=== PATIENT | male | born 1965 | race Caucasian/White ===

== ENCOUNTER 2017-05-18 20:13 | Inpatient (IN) | payer BC ==
--- NOTE | ~2017-05-18 | DS ---
Discharge Summary [facility] [address] [place]. [address] NAME: KACEY VANN : 69 STATUS : ADM Abran PAT#: [id number] AGE: 51 ADM/REG DATE : 05/18/17 MR#: [id number] REPORT SERV DATE: 05/20/17 DICTATED BY: KEVON MOSER DATE: 05/20/17 REPORT STATUS : Draft TRANSCRIBED BY: MODL DATE: 05/20/17 ADMISSION DATE: 05/18/2017 DISCHARGE DATE: 05/20/2017 FINAL DIAGNOSES: 1. Syncopal to near syncopal episode, possibly vasovagal. 2. Leukocytosis, resolved. 3. Hypokalemia resolved. 4. Atrial fibrillation, resolved. CONSULTATIONS: Neurology. PROCEDURES: 1. CT scan of the brain done on the showing unremarkable noncontrast CT head, no acute intracranial pathology. 2. CTA of the chest done on the showing no CTA evidence of pulmonary embolus, cardiomegaly, no acute CHF pattern, probable ill-defined dependent bibasilar atelectasis, nonobstructing right nephrolithiasis. 3. MRI/MRA of the brain done on the showing no acute intracranial abnormality. Unremarkable MRA of the brain. 4. Chest x-ray, mild bibasilar atelectasis. Otherwise, no acute cardiopulmonary abnormality. 5. Echocardiogram showing an EF of 55%. HPI: For current physical findings and HPI, please see dictated H and P by Dr. Covarrubias. In brief, the patient is a 51-year-old male who presented with complaints of feeling dizzy as if he was going to pass out. He laid down on the bed, was not sure that he completely passed out but was confused, dazed, presented to the emergency department. He was noted to be initially hypotensive with BPs 107/48 and 88/49. He was afebrile, pulse rate was in the 60s to 80s. Initial imaging studies were as noted above. Initial procalcitonin was 0.14, he had a subsequent rise to 3.16. Initial potassium was 3.4, this easily corrected. Initial creatinine was 1.17, subsequent was 0.96 and 0.89. Initial glucose was 130, subsequent was 119 and 110. Magnesium was normal, PO4 was normal, folate slightly low at 2.6, troponin was 0.03, TSH was 0.597, C-reactive protein was 14.7, ammonia was 13. Lactate initially was 3, subsequent was 1.8. Initial white count was 21,000, subsequent was 17.9 and then 8.8. D-dimer was 0.29. Strep was negative. Rickettsial panel is currently pending. Legionella was negative. Urinalysis was negative. Blood cultures to this date are negative. Sputum is negative to date. HOSPITAL COURSE: The patient was admitted. He was started on antibiotics because of the significant leukocytosis, specifically cefepime and vancomycin. Neurology was consulted. Cultures were drawn. IV fluids were given. Electrolyte protocol was initiated. I saw the patient the following day. He has had no more symptoms, was afebrile, his white count was decreasing. Sedimentation rate was ordered which was negative as was the rickettsial panel which is pending. Orthostatic vitals were negative. Neurology saw him in consultation. Additional lab outside of the folate was normal. MRI was ordered and reviewed. He was seen Discharge [address] [address] NAME: KACEY VANN : 69 STATUS : ADM Abran PAT#: [id number] AGE: 51 ADM/REG DATE : 05/18/17 MR#: [id number] REPORT SERV DATE: 05/20/17 DICTATED BY: KEVON MOSER DATE: 05/20/17 REPORT STATUS : Draft TRANSCRIBED BY: NOEMI DATE: 05/20/17 the following day, he was still having no difficulties although his subsequent procalcitonin was higher at 3.12. An EEG was ordered and then changed to outpatient. The patient's telemetry showed no further dysrhythmias. The patient requested to go home the evening of the . A long discussion with the patient in the presence of his mother, family and nursing staff, discussed with Mr. Vann that he did have the one episode of atrial fib, although he has had no further, his CHADS score would be very low, he has no other risk factors. We did discuss the need for followup on the atrial fib as it is uncertain at this time, probably did not have a relation to syncope but will still need to be followed up on. We discussed the risks of undiagnosed intermittent atrial fibrillation including stroke risk and he voiced understanding. We talked about his elevated procalcitonin and leukocytosis on presentation and his pending lab. Recommended repeat procalcitonin in the morning. The patient preferred to follow up with his regular doctor to finalize his cultures, his rickettsial panel and further treatment. He was agreeable to scheduling the EEG outpatient also. He was cautioned about driving since he has not had his EEG although seizure seems remote. He was informed that there would be a driving restriction should he be diagnosed to have a seizure propensity and he voiced understanding. At this point, after all that discussion the patient still wishes to go, does not wish to stay for a.m. lab, cardiology consult and further evaluation. Again he was well aware of the risks and benefits and still requested to go this evening. He was discharged with a prescription for Ceftin 500 b.i.d. He was not taking any home medications, so none to be continued. He can also follow up on his slightly low folate level outpatient. DICTATED BY: Henry Ko/NOEMI Kevon Moser M.D. / [id number]
--- NOTE | ~2017-05-18 | CN ---
Consultation Report [facility] [address] [place]. [address] NAME: KACEY ZHANG : 69 STATUS : ADM Abran PAT#: [id number] AGE: 51 ADM/REG DATE : 05/18/17 MR#: [id number] REPORT SERV DATE: 05/19/17 DICTATED BY: DATE: REPORT STATUS : Draft TRANSCRIBED BY: MODL DATE: 05/19/17 NEUROLOGY CONSULTATION DATE OF CONSULTATION: 05/19/2017 CLINICAL INDICATION: Loss of consciousness episode. HISTORY OF PRESENT ILLNESS: This is a 51-year-old male, presented to [facility] on 05/18/2017 secondary to loss consciousness episode event. The patient was visiting on the toilet talking on the phone, when patient stood up, the patient was noted to have dizzy sensation composed of both feel like about to pass out as well as vertigo type of sensation. The patient somehow was able to manage walking to the bedroom, was noted to be in and out of consciousness with difficulties telling how long the symptom has lasted. The patient reports post-event weakness as well as some mild confusion. The patient thought he had dialled 911, but apparently called his mother for four times. The patient denies similar events in the past. Reports improving symptoms still with some weakness, but have no problem walking. The patient denies recurrent gait abnormality. Denies any vertigo or loss of consciousness or presyncopal sensation. The patient denies any previous history of seizure and denies any previous history of head trauma. The patient denies previous seizure medication usage and denies any prior loss of consciousness event. No history of meningitis was otherwise reported by the patient. The patient denies any current focal deficits and denies recent illness, fever, chills, nausea, vomiting, chest pain, or shortness of breath. Denies any family history of seizure or seizure-like activities. Denies new medications prior to hospitalization. At the time of evaluation, the patient denies any past medical history. Reports blood pressure usually around 110 to 120s at home unless doing strenuous activities. FAMILY HISTORY: The patient's family history is significant for hypertension. No family history of seizure was otherwise reported. SOCIAL HISTORY: Denies tobacco, alcohol, or recreational drug usage. MEDICATIONS: The patient was noted to have no home medications and reports allergy to hydrocodone. The patient does have a history of a back surgery as well as kidney stones in the past. REVIEW OF SYSTEMS: Negative except for those mentioned in the HPI. PHYSICAL EXAMINATION: VITAL SIGNS: Overnight, the patient was noted to have vital signs with T-max of 98.5, heart rate of 57 to 64, respirations of 15, and blood pressure of 88 to 131 over 49 to 53. GENERAL: The patient is a well developed, well nourished, in no acute distress. CARDIOVASCULAR: Regular rate and rhythm. No carotid bruits were otherwise auscultated. Consultation Report [place] [address] [facility] [place]. [address] NAME: KACEY ZHANG : 69 STATUS : ADM Abran PAT#: [id number] AGE: 51 ADM/REG DATE : 05/18/17 MR#: [id number] REPORT SERV DATE: 05/19/17 DICTATED BY: DATE: REPORT STATUS : Draft TRANSCRIBED BY: MODL DATE: 05/19/17 PULMONARY: Clear to auscultation bilaterally. NEUROLOGIC: Generally, the patient is alert and oriented x3 to person, place, year, and month. Follows simple and 2-step commands. No dysarthria. No aphasia. Intact registration and recall. Cranial nerves II through XII, pupils equal, round, and reactive to light. Extraocular eye movement was noted to be intact. Intact peripheral vision. Symmetrical facial expression and sensation. Midline tongue. Normal palatal movement. Mild decreased hearing in bilateral ears. The patient demonstrated 5/5 bilateral upper and lower extremity strength. Normal muscle, bulk, and tone. 5/5 bilateral lower extremity strength at the time of evaluation with normal muscle, bulk, and tone. No pronator drift was otherwise noted. Reports symmetrical sensation bilaterally. Normal [id number]-hp-[id number] examination without ataxia. At the time of evaluation, deep tendon reflex was 1+ throughout. Downgoing toe on the right plantar reflex. Upgoing toe on the left plantar reflex. At the time of evaluation, normal station and normal gait. LABORATORY STUDIES: Demonstrated white blood cell count of 17.9, hemoglobin of 13.2, hematocrit of 38.1, and platelet count of 235. Chemistry panel: Sodium of 138, potassium 4.2, chloride 108, bicarb 24, BUN of 9, creatinine of 0.96, glucose of 119, calcium of 8.1, magnesium 1.9. Urinalysis demonstrated negative leukocyte esterase and negative nitrite. At the time of evaluation, the patient's MRI of the brain was reviewed which demonstrated no acute process. MRA of the head was also reviewed which demonstrated no acute stenosis or atherosclerotic disease. CT scan of the brain otherwise demonstrated no acute process. Echocardiogram is pending. IMPRESSION: Loss of consciousness with etiology unclear. MRI of the brain is otherwise normal without any acute events. The patient reports improving generalized weakness. Overnight, since the hospital admission, the patient was noted to have some hypotension with orthostatic vital signs are negative at this time, concern for possible loss of consciousness secondary to hypotension versus seizure. We will check procalcitonin level, sedimentation rate, CRP, vitamin B12, folate, TSH, free T4. We will also obtain echocardiogram for evaluation. RECOMMENDATION: 1. Procalcitonin, sedimentation rate, CRP, vitamin B12, folate, TSH, and free T4 with morning labs. 2. Echo pending. [facility]/NOEMI Junior Knowles MD Consultation Report [address] [address] NAME: KACEY ZHANG : 69 STATUS : ADM Abran PAT#: [id number] AGE: 51 ADM/REG DATE : 05/18/17 MR#: [id number] REPORT SERV DATE: 05/19/17 DICTATED BY: DATE: REPORT STATUS : Draft TRANSCRIBED BY: MODL DATE: 05/19/17 / [id number] CC: Henry Ko OLIVER M
--- NOTE | ~2017-05-18 | HP ---
History And Physical [facility] [address] [facility] [place]. [address] NAME: KACEY VANN : 69 STATUS : ADM Abran PAT#: [id number] AGE: 51 ADM/REG DATE : 05/18/17 MR#: [id number] REPORT SERV DATE: 05/19/17 DICTATED BY: KRANTHI BAUGH DATE: 05/19/17 REPORT STATUS : Draft TRANSCRIBED BY: MODMiguel Angel DATE: 05/19/17 DATE OF ADMISSION: 05/18/2017 CHIEF COMPLAINT: Passed out today. HISTORY OF PRESENT ILLNESS: This is a 51-year-old male with no significant past medical history, who presents to the emergency room at [facility], with the above-mentioned complaint. History is obtained from the patient and reviewing data available on the [employer] system. According to Mr. Vann, he was in his usual state of health until this afternoon when he was at home sitting on the toilet when he felt very dizzy and was going to pass out. He somehow made it to his bed and lay down on the bed and felt himself passing out again. He really does not know whether he fully passed out, but when he subsequently recovered, he was trying to call 911, but somehow was dialing his mother's number repeatedly. His mother came over because she knew something was wrong, and found him weak and confused, and called 911. The patient was subsequently brought here. In the emergency room, initial workup revealed he had leukocytosis with hypokalemia. He presented with hypotension as well. Hospitalist Service is asked to admit him for observation for his syncope and evaluation of his other abnormalities. At the time of my evaluation, he denied any chest pain or palpitations. He had no orthopnea. He did not have any cough, hemoptysis, night sweats, or weight loss. He denied any nausea, vomiting, or diarrhea. He did have some chills later in the evening and when he got here. No history of hematemesis, hematochezia, or hematuria. No other history of recent contacts, travel, or exposures. PAST MEDICAL HISTORY: None. SOCIAL HISTORY: He does not smoke, drink, or use recreational drugs. FAMILY HISTORY: Noncontributory. MEDICATIONS: His medications at home were reviewed by me in the chart today and reordered by me. REVIEW OF SYSTEMS: As in history of present illness. All other systems reviewed in detail and are quite unremarkable. PHYSICAL EXAMINATION: GENERAL: This is a pleasant 51-year-old male not in any acute distress. HEENT: His head is atraumatic, normocephalic. He is alert, awake, oriented to time, place, and person. Pupils are equal, reacting to light, and accommodating. External ocular muscles are intact. Membranes are moist and pink. Sclerae are nonicteric. History And Physical [address] [address] NAME: KACEY VANN : 69 STATUS : ADM Abran PAT#: [id number] AGE: 51 ADM/REG DATE : 05/18/17 MR#: [id number] REPORT SERV DATE: 05/19/17 DICTATED BY: KRANTHI BAUGH DATE: 05/19/17 REPORT STATUS : Draft TRANSCRIBED BY: NOEMI DATE: 05/19/17 NECK: Supple with no jugular venous distention, lymphadenopathy, or thyromegaly. LUNGS: Clear to auscultation with no wheezes, rubs, or crackles. HEART: Heart sounds were regular with no murmurs, rubs, or gallops. ABDOMEN: Soft, nontender. Bowel sounds are present. EXTREMITIES: Showed no cyanosis, clubbing, or edema. NEUROLOGIC: Grossly intact. No focal sensory or motor deficits. Higher functions appeared intact. Gait was not examined at this time. VITAL SIGNS: His vital signs today showed a temperature of 97.8, pulse 64, respirations 18 to 20 a minute, blood pressure was 107/48, oxygen saturation upon arrival was 97% breathing 2 L of oxygen via nasal cannula. LABORATORY DATA: Reviewed on the [employer] system showed a CMP with a sodium of 141, potassium 3.4 chloride 103, and CO2 was 28. BUN was 10 with a creatinine of 1.17. Blood glucose was 130. Magnesium was 1.9 and calcium was 8.5. Troponin was 0.03 and initial lactate was 3.0 today. CBC revealed a white blood cell count of 21,000. Hemoglobin, hematocrit, and platelet count were within normal limits. His prothrombin time was 14.6 with an INR 1.2. Urinalysis was grossly unremarkable today. Films of the CT scan of his brain, CTA of the chest, and chest x-ray were reviewed by me on the PACS today. There were no acute pulmonary infiltrates or lobar consolidations seen in the chest x-ray. CT of the chest did not reveal any acute pulmonary embolism. CT of the brain did not reveal any acute intracranial pathology. Please see report for details. IMPRESSION: 1. Syncope. 2. Sepsis. 3. Leukocytosis. 4. Hypokalemia. 5. Hypotension. 6. History of recurrent priapism in the past. PLAN: We will admit Mr. Vann to the Hospitalist Service with telemetry for a 24-hour observation period. CT of the head and CT of the chest did not reveal any acute abnormalities to explain his syncopal episode. The differential would certainly include a TIA versus CVA. We will go ahead and get an MRI of the brain along with an MRA and an echocardiogram. Meanwhile, we will obtain cultures and start him on empiric IV antibiotics. Check his procalcitonin level as well. We will replace potassium. Check chemistry and CBC in the morning along with a peripheral smear as well. We will start him on IV fluids for his hypotension, which he has responded well, and we will continue this. We will also place him on bronchodilator treatments, and continue supplemental oxygen therapy. He will certainly benefit from a Neurology evaluation in the morning after the tests, which we have ordered have been performed. At this time, we will go ahead and place him on low-molecular weight heparin for DVT prophylaxis while here. We will certainly be repeating his lactate levels and chemistry and CBC. I have discussed the above plans with the patient. His questions were answered, and he and his family are agreeable to the above recommendations. Hospitalist Service will be following him during his stay here. History And Physical [address] [address] NAME: KACEY VANN : 69 STATUS : ADM Abran PAT#: [id number] AGE: 51 ADM/REG DATE : 05/18/17 MR#: [id number] REPORT SERV DATE: 05/19/17 DICTATED BY: KRANTHI BAUGH DATE: 05/19/17 REPORT STATUS : Draft TRANSCRIBED BY: NOEMI DATE: 05/19/17 MR/NOEMI Kranthi Baugh M.D. / [id number] CC: Miles Scherer M.D.
[2017-05-18 20:08] LABS: BASOPHILS 0 %; BASOPHILS ABSOLUTE 0.01 10/3/uL (0.0-0.16); EOSINOPHILS 0.2 %; EOSINOPHILS ABSOLUTE 0.05 10/3/uL (0.0-0.53); ER CBC TAT 0 Hrs 10 Mins; HEMATOCRIT 42.7 % (40.0-51.0); HEMOGLOBIN 14.5 g/dL (13.6-17.8); IMMATURE GRANULOCYTES 0.3 %; IMMATURE GRANULOCYTES ABSOLUTE 0.06 10/3/uL (0.0-0.11); LYMPHOCYTES ABSOLUTE 1.47 10/3/uL (0.67-4.30); MANUAL DIFF NO %; MEAN CORPUSCULAR HEMOGLOB 29.8 pg (26.0-34.0); MEAN CORPUSCULAR VOLUME 87.9 fL (80-100); MEAN PLATELET VOLUME 10.6 fL (9.2-13.0); MONOCYTES 1.4 %; MONOCYTES ABSOLUTE 0.29 10/3/uL (0.21-1.20); NEUTROPHILS 91.1 %; NEUTROPHILS ABSOLUTE 19.14 10/3/uL (2.02-8.40); PLATELET COUNT 235 10/3/uL (150-400); RBC DISTRIBUTION WIDTH 13.1 % (12.0-16.0); RED CELL COUNT 4.86 10/6/uL (4.7-6.1)
[2017-05-18 20:14] LABS: ASCORBIC ACID (UR NOT ORDER) NEG (NEG); BILIRUBIN, URINE NEGATIVE (NEG); ER URINALYSIS TAT 0 Hrs 16 Mins; KETONE, URINE 20 MG/DL (NEG); LEUKOCYTE ESTERASE(NOT OR NEG (NEG); NITRITE (URINE) NEG (NEG); WBC (NOT ORDERED) (RFLEX) 1 (0-5)
[2017-05-18 20:19] LABS: PARTIAL THROMBO TIME 29.6 SEC (22.5-37.2)
[2017-05-18 20:20] LABS: INTERNATIONAL NORMAL RATI 1.2 UNITS (-); PROTIME (NOT ORD) 14.6 SEC (12.0-14.5)
[2017-05-18 20:21] LABS: BUN (BLOOD UREA NITROGEN) 10 MG/DL (6-23); CALCIUM, SERUM 8.5 MG/DL (8.5-10.4); CHEST PAIN PROFILE TAT 0 Hrs 23 Mins; CHLORIDE, SERUM 103 MMOL/L (96-112); CO2 (CARBON DIOXIDE) 28 MMOL/L (24-34); CREATININE 1.17 MG/DL (0.70-1.30); GFR AFRICAN AMERICAN 84 ML/MIN (>=60); GFR NON AFRICAN AMERICAN 73 ML/MIN (>=60); GLUCOSE, SERUM 130 MG/DL (60-99); POTASSIUM, SERUM 3.4 MMOL/L (3.5-5.3); SODIUM, SERUM 141 MMOL/L (135-148); TROPONIN I 0.03 NG/ML (<0.05)
[2017-05-18 20:22] LABS: D-DIMER QUANTITATIVE 0.29 ug/mLFEU (< 0.50)
[2017-05-18] MEDS ORDERED: *DENIES (22:13)
[2017-05-19 00:51] LABS: PROCALCITONIN 0.14 ng/mL (<0.5)
[2017-05-19 04:08] LABS: BASOPHILS 0 %; EOSINOPHILS 0.4 %; EOSINOPHILS ABSOLUTE 0.07 10/3/uL (0.0-0.53); HEMOGLOBIN 13.2 g/dL (13.6-17.8); IMMATURE GRANULOCYTES 0.3 %; IMMATURE GRANULOCYTES ABSOLUTE 0.05 10/3/uL (0.0-0.11); LYMPHOCYTES 9.6 %; LYMPHOCYTES ABSOLUTE 1.72 10/3/uL (0.67-4.30); MEAN CORPUS HGB CONC 34.6 g/dL (32.0-36.0); MEAN CORPUSCULAR HEMOGLOB 29.9 pg (26.0-34.0); MEAN CORPUSCULAR VOLUME 86.2 fL (80-100); MEAN PLATELET VOLUME 10.1 fL (9.2-13.0); MONOCYTES 3.8 %; MONOCYTES ABSOLUTE 0.68 10/3/uL (0.21-1.20); NEUTROPHILS 85.9 %; NEUTROPHILS ABSOLUTE 15.33 10/3/uL (2.02-8.40); PLATELET COUNT 235 10/3/uL (150-400); RED CELL COUNT 4.42 10/6/uL (4.7-6.1); WHITE BLOOD CELLS 17.9 10/3/uL (4.5-10.5)
[2017-05-19 04:15] LABS: HEMATOCRIT 38.1 % (40.0-51.0); MANUAL DIFF NO %
[2017-05-19 04:25] LABS: BUN (BLOOD UREA NITROGEN) 9 MG/DL (6-23); CALCIUM, SERUM 8.1 MG/DL (8.5-10.4); CHLORIDE, SERUM 108 MMOL/L (96-112); CO2 (CARBON DIOXIDE) 24 MMOL/L (24-34); CREATININE 0.96 MG/DL (0.70-1.30); GFR AFRICAN AMERICAN 107 ML/MIN (>=60); GFR NON AFRICAN AMERICAN 92 ML/MIN (>=60); GLUCOSE, SERUM 119 MG/DL (60-99); PHOSPHORUS, SERUM 3.6 MG/DL (2.5-4.5); POTASSIUM, SERUM 4.2 MMOL/L (3.5-5.3); SODIUM, SERUM 138 MMOL/L (135-148)
[2017-05-20 04:25] LABS: BASOPHILS 0.1 %; BASOPHILS ABSOLUTE 0.01 10/3/uL (0.0-0.16); EOSINOPHILS 2.8 %; EOSINOPHILS ABSOLUTE 0.25 10/3/uL (0.0-0.53); HEMATOCRIT 37.2 % (40.0-51.0); HEMOGLOBIN 12.6 g/dL (13.6-17.8); IMMATURE GRANULOCYTES 0.5 %; IMMATURE GRANULOCYTES ABSOLUTE 0.04 10/3/uL (0.0-0.11); LYMPHOCYTES 31.3 %; LYMPHOCYTES ABSOLUTE 2.75 10/3/uL (0.67-4.30); MEAN CORPUS HGB CONC 33.9 g/dL (32.0-36.0); MEAN CORPUSCULAR HEMOGLOB 29.6 pg (26.0-34.0); MEAN CORPUSCULAR VOLUME 87.5 fL (80-100); MEAN PLATELET VOLUME 10.2 fL (9.2-13.0); MONOCYTES 5.1 %; MONOCYTES ABSOLUTE 0.45 10/3/uL (0.21-1.20); NEUTROPHILS 60.2 %; NEUTROPHILS ABSOLUTE 5.29 10/3/uL (2.02-8.40); PLATELET COUNT 197 10/3/uL (150-400); RBC DISTRIBUTION WIDTH 13.6 % (12.0-16.0); RED CELL COUNT 4.25 10/6/uL (4.7-6.1)
[2017-05-20 04:31] LABS: MANUAL DIFF NO %; WHITE BLOOD CELLS 8.8 10/3/uL (4.5-10.5)
[2017-05-20 05:12] LABS: BUN (BLOOD UREA NITROGEN) 8 MG/DL (6-23); C-REACTIVE PROTEIN 14.7 MG/L (<8.0); CALCIUM, SERUM 8.7 MG/DL (8.5-10.4); CHLORIDE, SERUM 109 MMOL/L (96-112); CO2 (CARBON DIOXIDE) 27 MMOL/L (24-34); CREATININE 0.89 MG/DL (0.70-1.30); FREE T4 0.96 NG/DL (0.76-1.46); GFR AFRICAN AMERICAN 116 ML/MIN (>=60); GFR NON AFRICAN AMERICAN 100 ML/MIN (>=60); GLUCOSE, SERUM 110 MG/DL (60-99); POTASSIUM, SERUM 4.7 MMOL/L (3.5-5.3); SODIUM, SERUM 141 MMOL/L (135-148); ULTRASENSITIVE TSH 0.597 MCIU/ML (0.358-3.740)
[2017-05-20 05:13] LABS: FOLATE 2.6 NG/ML (>5.2)
[2017-05-20 05:49] LABS: SED RATE 7 MM/HR (0-15)
[2017-05-20 07:01] LABS: PROCALCITONIN 3.16 ng/mL (<0.5)
[2017-05-20] MEDS ORDERED: ASA5GR PO (21:11)
[2017-05-20] MEDS ORDERED: CEFT5 (21:12)
[2017-05-22 15:36] LABS: RICKETTSIA TYPHI AB IGG <1:64 (LTD64); RICKETTSIA TYPHI AB IGM <1:64 (LTD64); ROCKY MTN SPOTTED FEVER AB IGG <1:64 (LTD64); ROCKY MTN SPOTTED FEVER AB IGM <1:64 (LTD64)
== END 2017-05-20 21:30 | disposition home or self-care (01) | DRG 872 ==
LOC: ER 20:13 → CDU1 21:00
PROVIDERS: Emergency Medicine; Internal Medicine
DX: A41.9 Sepsis, unspecified organism (principal); I48.91 Unspecified atrial fibrillation; R55 Syncope and collapse; E87.6 Hypokalemia
CPT/HCPCS: 70450; 70544; 70551; 71010; 71275; 80048; 81001; 82140; 82607; 82746; 83605; 83735; 84100; 84145; 84439; 84443; 84484; 85025; 85379; 85610; 85652; 85730; 86140; 86757; 86757-59; 87040; 87070; 87205; 87449; 93005; 94640; 99285; A9270-GY; C8929; J0692; J3370; Q9957; Q9967